=== PATIENT | female | born 1950 | race Caucasian/White ===

== ENCOUNTER 2017-01-16 13:14 | Observation (INO) | payer OTHER ==
[2017-01-16] MEDS ORDERED: CATAPRES TAB 0.1 MG PO PRN (16:51)
[2017-01-16] MEDS ORDERED: APRESOLINE INJ 20 MG VIAL IVP PRN (16:51)
[2017-01-16] MEDS ORDERED: TYLENOL 325 MG TAB PO PRN (17:13)
[2017-01-16 17:26] LABS: BASOPHILS # (AUTO) 0.1 X10^3/uL (0.0-0.1); EOSINOPHILS # (AUTO) 0.1 x10^3/uL (0.0-0.2); EOSINOPHILS % (AUTO) 0.6 % (0.9-2.9); HEMATOCRIT 42.4 % (36.0-47.0); HEMOGLOBIN 14.6 g/dL (12.0-16.0); LYMPHOCYTES # (AUTO) 2.7 X10^3/uL (1.3-2.9); LYMPHOCYTES % (AUTO) 22.1 % (21.0-51.0); MEAN CORPUSCULAR HEMOGLOBIN 31.5 pg (27.0-34.0); MEAN CORPUSCULAR HGB CONC 34.4 g/dL (33.0-35.0); MEAN CORPUSCULAR VOLUME 91.6 fL (80.0-100.0); MEAN PLATELET VOLUME 8.9 fL (7.4-11.0); MONOCYTES # (AUTO) 0.6 x10^3/uL (0.3-0.8); MONOCYTES % (AUTO) 4.6 % (0.0-13.0); NEUTROPHILS # (AUTO) 8.8 x10^3/uL (2.2-4.8); NEUTROPHILS % (AUTO) 71.7 % (42.0-75.0); PLATELET COUNT 233 X10^3/uL (150.0-450.0); RED BLOOD COUNT 4.63 X10^6/uL (3.5-5.4); RED CELL DISTRIBUTION WIDTH 13.2 % (11.6-16.5)
[2017-01-16] MEDS: NS 1000 ML 1,000 ML IV SCH (17:35)
[2017-01-16] MEDS: ZESTRIL TAB 40 MG PO SCH (17:35)
[2017-01-16] MEDS: NORVASC TAB 10 MG PO SCH (17:35)
[2017-01-16 17:43] LABS: ALKALINE PHOSPHATASE 84 Units/L (46-116); BLOOD UREA NITROGEN 11 mg/dL (7-18); TOTAL PROTEIN 7.9 g/dL (6.4-8.2); TROPONIN I < 0.02 ng/mL (0-1.5); eGFR BLACK RACES > 60 (>60); eGFR NON BLACK RACES > 60 (>60)
[2017-01-16 17:54] LABS: WHITE BLOOD COUNT 12.2 X10^3/uL (3.6-10.0)
[2017-01-16 17:55] LABS: PLATELET MORPHOLOGY COMMENT NORMAL (NORMAL)
[2017-01-16 18:03] LABS: ALANINE AMINOTRANSFERASE 31 Units/L (12-78); ALBUMIN 3.7 g/dL (3.4-5.0); ASPARTATE AMINO TRANSFERASE 24 Units/L (15-37); CALCIUM 9.2 mg/dL (8.5-10.1); CARBON DIOXIDE 20.8 mmol/L (21-32); CKMB % 1.4 % (<4); CREATINE KINASE 73 Units/L (26-192); CREATININE 0.83 mg/dL (0.55-1.02); GLUCOSE 111 mg/dL (65-99)
[2017-01-16 18:12] LABS: CHLORIDE 103 mmol/L (98-107); COR NA(FOR HYPERGLY) 139 mmol/L (136-145); SODIUM 139 mmol/L (136-145)
[2017-01-16 19:27] LABS: BILIRUBIN,URINE NEGATIVE (NEGATIVE); BLOOD/HEMOGLOBIN,URINE 2+ (NEGATIVE); GLUCOSE, URINE NEGATIVE (NEGATIVE); KETONES,URINE NEGATIVE (NEGATIVE); LEUKOCYTE ESTERASE ,URINE 1+ (NEGATIVE); NITRITES,URINE NEGATIVE (NEGATIVE); PROTEIN,URINE 1+ (NEGATIVE); UROBILINOGEN,URINE NORMAL (NORMAL)
[2017-01-16 19:34] LABS: AMORPHOUS SEDIMENT,UR TRACE /HPF (NEGATIVE); APPEARANCE,URINE CLOUDY (CLEAR); BACTERIA,URINE 2+ /HPF (NEGATIVE); COLOR,URINE YELLOW (YELLOW); SQUAMOUS EPITHELIAL CELL,UR MODERATE /HPF (NEGATIVE)
[2017-01-16] MEDS: NORCO 7.5/325 MG TAB PO PRN (20:48)
[2017-01-16] MEDS: CATAPRES TAB 0.2 MG PO SCH (20:49)
[2017-01-16] MEDS ORDERED: LOPRESSOR TAB 50 MG PO SCH (21:00)
--- NOTE | 2017-01-16 23:45 | RAD ---
Chest, two views Indication: Shortness of breath. Comparison: 09/20/2014 Findings: The cardiac silhouette is unremarkable. The lungs are mildly hypoinflated, but essentially clear, without focal infiltrates or pleural effusion. The bony thorax is unremarkable. Impression: No acute cardiopulmonary disease. Reported By:
--- NOTE | 2017-01-16 23:55 | CT ---
CT head without contrast Indication: Intractable headache, blurred vision, dizziness Comparison: 09/20/2014 Technique: CT images of the head were obtained without contrast. Automatic exposure control was util ized. Findings: There is periventricular and deep white matter hypoattenuation suggestive for chronic micr oangiopathy, similar to prior. Additionally, there are more focal hypodensities of the bilateral bas al ganglia, suggesting chronic lacunar infarcts. There is age appropriate generalized atrophy with c oncomitant ventricular and sulcal enlargement. There is no acute bleed, mass effect, or abnormal ext ra-axial collection. No significant skeletal abnormality. The visualized paranasal sinuses and masto id air cells are clear. Impression: No acute intracranial abnormality. Chronic findings as above. Reported By:
[2017-01-17 00:13] LABS: CKMB % 1.2 % (<4); CREATINE KINASE 81 Units/L (26-192); CREATINE KINASE MB < 1.0 ng/mL (0-4.0); TROPONIN I < 0.02 ng/mL (0-1.5)
[2017-01-17] MEDS: NORCO 7.5/325 MG TAB PO PRN ×3 (05:30→23:20)
[2017-01-17 05:48] LABS: BASOPHILS # (AUTO) 0.1 X10^3/uL (0.0-0.1); EOSINOPHILS # (AUTO) 0.2 x10^3/uL (0.0-0.2); EOSINOPHILS % (AUTO) 2.8 % (0.9-2.9); HEMATOCRIT 38.9 % (36.0-47.0); HEMOGLOBIN 13.4 g/dL (12.0-16.0); LYMPHOCYTES # (AUTO) 3.2 X10^3/uL (1.3-2.9); LYMPHOCYTES % (AUTO) 45.5 % (21.0-51.0); MEAN CORPUSCULAR HEMOGLOBIN 31.7 pg (27.0-34.0); MEAN CORPUSCULAR HGB CONC 34.3 g/dL (33.0-35.0); MEAN CORPUSCULAR VOLUME 92.3 fL (80.0-100.0); MEAN PLATELET VOLUME 8.3 fL (7.4-11.0); MONOCYTES # (AUTO) 0.4 x10^3/uL (0.3-0.8); MONOCYTES % (AUTO) 5.5 % (0.0-13.0); NEUTROPHILS # (AUTO) 3.2 x10^3/uL (2.2-4.8); NEUTROPHILS % (AUTO) 45.2 % (42.0-75.0); PLATELET COUNT 246 X10^3/uL (150.0-450.0); RED BLOOD COUNT 4.21 X10^6/uL (3.5-5.4); RED CELL DISTRIBUTION WIDTH 13.7 % (11.6-16.5)
[2017-01-17 05:59] LABS: ALKALINE PHOSPHATASE 73 Units/L (46-116); BLOOD UREA NITROGEN 15 mg/dL (7-18); CHLORIDE 105 mmol/L (98-107); eGFR BLACK RACES > 60 (>60); eGFR NON BLACK RACES > 60 (>60)
[2017-01-17 06:21] LABS: ALANINE AMINOTRANSFERASE 27 Units/L (12-78); ALBUMIN 3.1 g/dL (3.4-5.0); ASPARTATE AMINO TRANSFERASE 18 Units/L (15-37); CALCIUM 8.8 mg/dL (8.5-10.1); CARBON DIOXIDE 23.9 mmol/L (21-32); CKMB % 1.6 % (<4); COR CA(FOR HYPOALB) 9.5 mg/dL (8.5-10.1); COR NA(FOR HYPERGLY) 140 mmol/L (136-145); CREATINE KINASE 75 Units/L (26-192); CREATINE KINASE MB 1.2 ng/mL (0-4.0); CREATININE 0.87 mg/dL (0.55-1.02); GLUCOSE 130 mg/dL (65-99); SODIUM 139 mmol/L (136-145); TOTAL PROTEIN 6.8 g/dL (6.4-8.2); TROPONIN I < 0.02 ng/mL (0-1.5)
[2017-01-17] MEDS ORDERED: LOPRESSOR TAB 50 MG PO SCH (09:00)
[2017-01-17] MEDS ORDERED: TYLENOL #3 TAB (W/CODEINE) PO PRN (11:20)
[2017-01-17] MEDS ORDERED: CITALOPRAM HYDROBROMIDE PO SCH (11:30)
[2017-01-17 11:55] VITALS: BMI 32.3
[2017-01-17] MEDS ORDERED: ZESTRIL TAB 40 MG PO SCH (12:00)
[2017-01-17] MEDS: CATAPRES TAB 0.2 MG PO SCH (12:10)
[2017-01-17] MEDS: NORVASC TAB 10 MG PO SCH (12:11)
[2017-01-17] MEDS: ZESTRIL TAB 40 MG PO SCH (12:11)
[2017-01-17] MEDS: LOPRESSOR TAB 25 MG PO SCH ×2 (12:11→20:53)
[2017-01-17] MEDS: KLONOPIN TAB 1 MG PO SCH ×3 (12:18→22:50)
[2017-01-17] MEDS: PRAVACHOL PO SCH (12:19)
[2017-01-17] MEDS: ELAVIL PO SCH ×2 (12:19→20:53)
[2017-01-17] MEDS: PROTONIX TAB 40 MG PO SCH (12:19)
[2017-01-17] MEDS: CELEXA PO SCH (12:20)
--- NOTE | 2017-01-17 14:04 | DR.H&P ---
H&P - History & Physical for Day of: H&P Date: 01/16/17 - Chief Complaint Chief Complaint: elevated blood pressure and intractable migraine - Allergies Allergies/Adverse Reactions: Allergies Allergy/AdvReac Type Severity Reaction Status Date / Time NSAIDs Allergy Verified 04/03/15 21:54 - History of Present Illness History of Present Illness: patient is a 66-year-old white female who was a direct admit from Dr. Allen's office with hypertensive urgency, and intractable headache. Patient has a past medical history of uncontrolled uncontrolled high blood pressure, history of noncompliance. Patient has a history of severe lumbar degenerative disc disease status post surgery. Plan to admit for treatment of hypertensive crisis, CT of the head, serial cardiac enzymes and chest x-ray. We'll repeat a.m. labs and continue cardiac and blood pressure monitoring - Past Medical History Past Medical History: Arthritis, GERD, Hypertension - Past Surgical History Surgical History: Hysterectomy, Ortho Surgery, Tonsillectomy, Other - Family History Family Medical History: Diabetes Mellitus, [place], Coronary Artery Disease, Hypertension - Social History Does patient currently use any type of tobacco product: No Type of Tobacco Use: None Does any household member use tobacco: No Alcohol Use: None Drug Use: Prescription Drugs - Medications Home Medications: Qimsetmswj-Tilv-Bayrzakt [FIORICET 50/325/40 MG *] 1 tab PO DAILY PRN MDD headache 01/17/17 [History Confirmed 01/17/17] Citalopram Hydrobromide [Citalopram Hydrobromide] 1 tab PO DAILY 01/17/17 [ History Confirmed 01/17/17] Clonazepam [Clonazepam] 0.5 tab PO 1200 01/17/17 [History Confirmed 01/17/17] Clonazepam [Clonazepam] 0.5 tab PO DAILY 01/17/17 [History Confirmed 01/17/17] Clonazepam [Clonazepam] 1 tab PO HS 01/17/17 [History Confirmed 01/17/17] Duloxetine HCl [Duloxetine HCl] 1 cap PO DAILY 01/17/17 [History Confirmed 01/17] Levothyroxine Sodium [Levothyroxine Sodium] 1 tab PO DAILY 01/17/17 [History Confirmed 01/17/17] Lisinopril [Lisinopril] 1 tab PO DAILY 01/17/17 [History Confirmed 01/17/17] Pravastatin Sodium [Pravastatin Sodium] 1 tab PO DAILY 01/17/17 [History Confirmed 01/17/17] Simvastatin [Simvastatin] 1 tab PO DAILY 01/17/17 [History Confirmed 01/17/17] - Review of Systems Constitutional: Weakness Eyes: No Symptoms Reported ENT: No Symptoms Reported Respiratory: No Symptoms Reported Cardiovascular: Edema, Light Headedness Gastrointestinal: No Symptoms Reported Genitourinary: No Symptoms Reported Musculoskeletal: Back Pain Skin: No Symptoms Reported Neurological: Other (martinez, dizziness) - Physical Exam Vital Signs: Temperature 97.9 F Pulse Rate [Right Brachial] 65 Respiratory Rate 20 Blood Pressure [Right Arm] 92/51 Blood Pressure [Left Arm] 99/62 Blood Pressure 152/103 O2 Sat by Pulse Oximetry 94 Oriented: Normal Eyes: Normal Ear: Normal Nose: Normal Throat: Normal Respiratory: Clear Throughout Cardiovascular: Normal : Normal Auscultation: Bowel Sounds: Normal Palpation: Normal Tenderness: Normal Skin: Normal Musculoskeletal: Back:Thoracic, Back:Lumbar, Tender (c spine), Sensory Deficit ( left hand paresthesias) Affect: Anxious Speech Pattern: Clear, Appropriate - Assessment/Plan (1) Hypertensive urgency Status: Acute Plan: admit, CT HEAD, CXR. SERIAL CE, EKG, ADMISSION LABS CBC CMP UA. BP CONTROL WITH IV HYDRALAZINE AND CATAPRES. RESUME HOME MEDS. REPEAT AM LABS (2) Intractable headache Qualifiers: Headache type: H Headache chronicity pattern: H Status: Acute (3) Lumbar degenerative disc disease Status: Acute (4) Numbness of left hand Status: Acute
--- NOTE | 2017-01-17 14:08 | PCM.PROG ---
Progress Note - Progress Note for Day of Date: 01/17/17 - Subjective Subjective: patient is a 66-year-old white female who was admitted one day ago with hypertensive urgency. Patient was treated with IV hydralazine as well as by mouth Catapres. Patient's blood pressure much improved this a.m. however patient continues with slight headache and numbness and tingling to the left hand. The head was without acute findings, cardiac enzymes were stable. Plan to obtain an MRI of the C-spine to rule out canal stenosis, nerve impingement. Plan to obtain CTA of the renal arteries to rule out renal artery stenosis. - Past Medical Family Social History Past Med/Fam/Surg Hx: No changes since H&P Allergies: Allergies NSAIDs Allergy (Verified 04/03/15 21:54) - Review of Systems ROS: No change since H&P - Vital Signs and I&O's Vital Signs: Temperature 97.9 F Pulse Rate [Right Brachial] 65 Respiratory Rate 20 Blood Pressure [Right Arm] 92/51 Blood Pressure [Left Arm] 99/62 Blood Pressure 152/103 O2 Sat by Pulse Oximetry 94 Intake and Output: Intake & Output 01/15/17 01/16/17 01/17/17 01/18/17 11:59 11:59 11:59 11:59 Intake Total 610 Balance 610 - Physical Exam Oriented: Normal Eyes: Normal Ear: Normal Nose: Normal Throat: Normal Cardiovascular: Normal : Normal Auscultation: Bowel Sounds: Normal Tenderness: Normal Skin: Normal Musculoskeletal: Back:Thoracic, Back:Lumbar, Tender (c spine), Sensory Deficit ( left hand paresthesias) Affect: Anxious Speech Pattern: Clear, Appropriate - Laboratory and Diagnostics Result Diagrams: 01/17/17 05:13 01/17/17 05:13 Labs: 01/16/17 19:19 Urine,Clean Catch Urine Culture - Preliminary Laboratory WBC 7.0 X10^3/uL (3.6-10.0) 01/17/17 05:13 RBC 4.21 X10^6/uL (3.5-5.4) 01/17/17 05:13 Hgb 13.4 g/dL (12.0-16.0) 01/17/17 05:13 Hct 38.9 % (36.0-47.0) 01/17/17 05:13 MCV 92.3 fL (80.0-100.0) 01/17/17 05:13 MCH 31.7 pg (27.0-34.0) 01/17/17 05:13 MCHC 34.3 g/dL (33.0-35.0) 01/17/17 05:13 RDW 13.7 % (11.6-16.5) 01/17/17 05:13 Plt Count 246 X10^3/uL (150.0-450.0) 01/17/17 05:13 Plt Count Comment Adequate (ADEQUATE) 01/16/17 17:18 MPV 8.3 fL (7.4-11.0) 01/17/17 05:13 Neut % 45.2 % (42.0-75.0) 01/17/17 05:13 Lymph % 45.5 % (21.0-51.0) 01/17/17 05:13 [place] % 5.5 % (0.0-13.0) 01/17/17 05:13 Eos % 2.8 % (0.9-2.9) 01/17/17 05:13 Baso % 1.0 % (0.2-1.0) 01/17/17 05:13 Neut # 3.2 x10^3/uL (2.2-4.8) 01/17/17 05:13 Lymph # 3.2 X10^3/uL (1.3-2.9) H 01/17/17 05:13 [place] # 0.4 x10^3/uL (0.3-0.8) 01/17/17 05:13 Eos # 0.2 x10^3/uL (0.0-0.2) 01/17/17 05:13 Baso # 0.1 X10^3/uL (0.0-0.1) 01/17/17 05:13 Absolute Nucleated RBC 0.1 /100WBC 01/17/17 05:13 Plt Clumps, EDTA Rare 01/16/17 17:18 Plt Morphology Comment Normal (NORMAL) 01/16/17 17:18 RBC Morphology Normal (NORMAL) 01/16/17 17:18 Sodium 139 mmol/L (136-145) 01/17/17 05:13 Corrected Sodium 140 mmol/L (136-145) 01/17/17 05:13 Potassium 3.4 mmol/L (3.5-5.1) L 01/17/17 05:13 Chloride 105 mmol/L (98-107) 01/17/17 05:13 Carbon Dioxide 23.9 mmol/L (21-32) 01/17/17 05:13 BUN 15 mg/dL (7-18) 01/17/17 05:13 Creatinine 0.87 mg/dL (0.55-1.02) 01/17/17 05:13 Est GFR (MDRD) Af Amer > 60 (>60) 01/17/17 05:13 Est GFR (MDRD) Non-Af > 60 (>60) 01/17/17 05:13 Glucose 130 mg/dL (65-99) H 01/17/17 05:13 Calcium 8.8 mg/dL (8.5-10.1) 01/17/17 05:13 Corrected Calcium 9.5 mg/dL (8.5-10.1) 01/17/17 05:13 Total Bilirubin 0.30 mg/dL (0.2-1.0) 01/17/17 05:13 AST 18 Units/L (15-37) 01/17/17 05:13 ALT 27 Units/L (12-78) 01/17/17 05:13 Alkaline Phosphatase 73 Units/L (46-116) 01/17/17 05:13 Creatine Kinase 75 Units/L (26-192) 01/17/17 05:13 CK-MB (CK-2) 1.2 ng/mL (0-4.0) 01/17/17 05:13 CK/CKMB % Calc 1.6 % (<4) 01/17/17 05:13 Troponin I < 0.02 ng/mL (0-1.5) 01/17/17 05:13 Total Protein 6.8 g/dL (6.4-8.2) 01/17/17 05:13 Albumin 3.1 g/dL (3.4-5.0) L 01/17/17 05:13 Globulin 3.7 g/dL (2.5-4.5) 01/17/17 05:13 Albumin/Globulin Ratio 0.8 Ratio (1.1-2.1) L 01/17/17 05:13 Specimen Type Clean catch urine 01/16/17 19:19 Urine Color Yellow (YELLOW) 01/16/17 19:19 Urine Appearance Cloudy (CLEAR) 01/16/17 19:19 Urine pH 5.0 (5.0 - 8.0) 01/16/17 19:19 Ur Specific [place] 1.020 (1.000-1.030) 01/16/17 19:19 Urine Protein 1+ (NEGATIVE) 01/16/17 19:19 Urine Glucose (UA) Negative (NEGATIVE) 01/16/17 19:19 Urine Ketones Negative (NEGATIVE) 01/16/17 19:19 Urine Occult Blood 2+ (NEGATIVE) 01/16/17 19:19 Urine Nitrite Negative (NEGATIVE) 01/16/17 19: Urine Bilirubin Negative (NEGATIVE) 01/16/17 19:19 Urine Urobilinogen Normal (NORMAL) 01/16/17 19:19 Ur Leukocyte Esterase 1+ (NEGATIVE) 01/16/17 19:19 Urine RBC 7-8 /HPF (NEGATIVE) 01/16/17 19:19 Urine WBC 3-5 /HPF (NEGATIVE) 01/16/17 19:19 Ur Squamous Epith Cells Moderate /HPF (NEGATIVE) 01/16/17 19:19 Amorphous Sediment Trace /HPF (NEGATIVE) 01/16/17 19:19 Urine Bacteria 2+ /HPF (NEGATIVE) 01/16/17 19:19 Ur Culture Indicated? Yes/culture set up 01/16/17 19:19 Urine Opiates Screen Negative (NEG=<300) 01/16/17 19:19 Urine Methadone Screen Negative (NEG=<300) 01/16/17 19:19 Ur Barbiturates Screen Negative (NEG=<200) 01/16/17 19:19 Ur Phencyclidine Scrn Negative (NEG=<25) 01/16/17 19:19 Ur Amphetamines Screen Negative (NEG=<1000) 01/16/17 19:19 U Benzodiazepines Scrn Negative (NEG=<200) 01/16/17 19:19 Urine Cocaine Screen Negative (NEG=<300) 01/16/17 19:19 U Marijuana (THC) Screen Negative (NEG=<50) 01/16/17 19:19 - Plan (1) Hypertensive urgency Status: Acute Plan: blood pressure improved this morning after IV hydralazine and by mouth Catapres. Will continue patient's home meds, continue cardiac monitoring, continue blood pressure control. We'll obtain CTA of the renal arteries to rule out renal artery stenosis as a cause for malignant hypertension (2) Intractable headache Status: Acute Qualifiers: Headache type: H Headache chronicity pattern: H Plan: pain control (3) Lumbar degenerative disc disease Status: Acute (4) Numbness of left hand Status: Acute Plan: continue blood pressure control, supportive care, MRI of the C-spine to rule out canal stenosis, nerve impingement (5) UTI (urinary tract infection) Status: Acute Qualifiers: Urinary tract infection type: U Hematuria presence: H Indwelling urinary catheter type: I Encounter type: E Plan: Rocephin 1 g IV daily
[2017-01-17] MEDS: ROCEPHIN VIAL 1 GM 1 GM in NS 50 ML IV + SPIKE MINIBAG* 50 ML IV SCH (15:08)
[2017-01-17] MEDS ORDERED: NS 100 ML IV 100 ML IV ONE (15:21)
--- NOTE | 2017-01-17 17:16 | CT ---
HISTORY: Hypertension, evaluate for renal artery stenosis Study: CT angiography of the abdomen Comparison: None Technique: Multiple axial images of the abdomen were obtained prior to and after the administration of IV contr ast. 3D reconstructions were performed utilizing radial maximum intensity projection imaging. Dose reduction techniques including Automated Exposure Control (AEC) and adjustment of mA and kV were uti lized. Findings: Mild cardiomegaly is noted. The lung bases are clear. There is diffuse hepatic steatosis. The solid organs are otherwise unremarkable. There is a simple appearing right renal cyst and nonobstructing r ight lower pole renal calculus. Normal gallbladder. No evidence of intestinal obstruction or infla mmation. No free fluid or free air. there are postsurgical changes of the lumbosacral spine noted. There is anterolisthesis of L4 on L5. Previous laminectomy is also noted at that level. Abdominal aorta: Normal in caliber. Mild atherosclerotic plaque is present. No aneurysm or dissectio n. Celiac trunk: Normal. Superior mesenteric artery: Normal. Renal Arteries: Single bilateral renal arteries with no significant stenosis identified. There is mi nimal nodular calcified plaque at the origin of the left renal artery. Inferior mesenteric artery: Normal. Iliac arteries: Normal. IMPRESSION: 1. Mild atherosclerotic disease, otherwise unremarkable CTA. No renal artery stenosis. 2. Hepatic steatosis. Reported By:
[2017-01-17] MEDS ORDERED: AMITRIPTYLINE HCL 50 MG PO SCH (21:00)
[2017-01-17] MEDS: NS 1000 ML 1,000 ML IV SCH (22:49)
[2017-01-18] MEDS: CATAPRES TAB 0.2 MG PO SCH ×2 (00:27→08:34)
[2017-01-18 05:02] LABS: ALANINE AMINOTRANSFERASE 28 Units/L (12-78); ALBUMIN 3.1 g/dL (3.4-5.0); ALKALINE PHOSPHATASE 70 Units/L (46-116); ASPARTATE AMINO TRANSFERASE 21 Units/L (15-37); BLOOD UREA NITROGEN 14 mg/dL (7-18); CALCIUM 8.7 mg/dL (8.5-10.1); CARBON DIOXIDE 23.6 mmol/L (21-32); CHLORIDE 108 mmol/L (98-107); COR CA(FOR HYPOALB) 9.4 mg/dL (8.5-10.1); CREATININE 0.75 mg/dL (0.55-1.02); GLUCOSE 91 mg/dL (65-99); SODIUM 141 mmol/L (136-145); TOTAL PROTEIN 6.7 g/dL (6.4-8.2); eGFR BLACK RACES > 60 (>60); eGFR NON BLACK RACES > 60 (>60)
[2017-01-18 05:15] LABS: BASOPHILS % (AUTO) 0.9 % (0.2-1.0); EOSINOPHILS # (AUTO) 0.1 x10^3/uL (0.0-0.2); EOSINOPHILS % (AUTO) 2.7 % (0.9-2.9); HEMATOCRIT 39.8 % (36.0-47.0); HEMOGLOBIN 13.5 g/dL (12.0-16.0); LYMPHOCYTES # (AUTO) 2.6 X10^3/uL (1.3-2.9); LYMPHOCYTES % (AUTO) 50.2 % (21.0-51.0); MEAN CORPUSCULAR HGB CONC 33.9 g/dL (33.0-35.0); MEAN CORPUSCULAR VOLUME 94.4 fL (80.0-100.0); MEAN PLATELET VOLUME 9.2 fL (7.4-11.0); MONOCYTES # (AUTO) 0.3 x10^3/uL (0.3-0.8); MONOCYTES % (AUTO) 5.4 % (0.0-13.0); NEUTROPHILS # (AUTO) 2.1 x10^3/uL (2.2-4.8); NEUTROPHILS % (AUTO) 40.8 % (42.0-75.0); PLATELET COUNT 219 X10^3/uL (150.0-450.0); RED BLOOD COUNT 4.22 X10^6/uL (3.5-5.4); RED CELL DISTRIBUTION WIDTH 13.6 % (11.6-16.5); WHITE BLOOD COUNT 5.3 X10^3/uL (3.6-10.0)
[2017-01-18] MEDS: KLONOPIN TAB 1 MG PO SCH (05:52)
[2017-01-18] MEDS: NORCO 7.5/325 MG TAB PO PRN (07:18)
[2017-01-18] MEDS: ELAVIL PO SCH (08:34)
[2017-01-18] MEDS: CELEXA PO SCH (08:34)
[2017-01-18] MEDS: LOPRESSOR TAB 25 MG PO SCH (08:34)
[2017-01-18] MEDS: PROTONIX TAB 40 MG PO SCH (08:35)
[2017-01-18] MEDS: PRAVACHOL PO SCH (08:35)
[2017-01-18] MEDS: ZESTRIL TAB 40 MG PO SCH (08:35)
[2017-01-18] MEDS: NORVASC TAB 10 MG PO SCH (08:35)
[2017-01-18] MEDS: ROCEPHIN VIAL 1 GM 1 GM in NS 50 ML IV + SPIKE MINIBAG* 50 ML IV SCH (08:35)
[2017-01-18] MEDS ORDERED: PATIENT'S HOME MEDICATION (Tizanidine Hcl [Zanaflex 4 Mg] 4 MG) PO PRN (08:52)
[2017-01-18] MEDS ORDERED: TYLENOL #3 TAB (W/CODEINE) PO PRN (08:52)
[2017-01-18] MEDS ORDERED: ZANAFLEX PO PRN ×2 (08:59→09:00)
[2017-01-18] MEDS ORDERED: PATIENT'S HOME MEDICATION (Pravastatin Sodium [Pravastatin Sodium] 1 TAB) PO SCH (09:00)
[2017-01-18] MEDS ORDERED: CYMBALTA PO SCH (09:00)
[2017-01-18] MEDS ORDERED: ESTRACE PO SCH (09:00)
[2017-01-18] MEDS ORDERED: SYNTHROID 50 mcg TAB PO SCH (09:00)
[2017-01-18] MEDS ORDERED: KLONOPIN TAB 1 MG PO SCH ×2 (12:00→21:00)
[2017-01-18 13:28] VITALS: BP 134/67
--- NOTE | 2017-01-18 13:59 | PCM.DCPLAN ---
Discharge Summary - Admission Date Date of Admission: 01/16/17 - Discharge Date Discharge Date: 01/18/17 - Admission Diagnoses (1) Hypertensive urgency Status: Acute (2) Intractable headache Status: Acute (3) Lumbar degenerative disc disease Status: Acute (4) Numbness of left hand Status: Acute (5) UTI (urinary tract infection) Status: Acute - Discharge Diagnoses Discharge Diagnosis: same as admission - Discharge Medications Discharge Medications: Pejidhystd-Uajo-Ctjigvah [FIORICET 50/325/40 MG *] 1 tab PO DAILY PRN MDD headache 01/17/17 [History] Citalopram Hydrobromide 1 tab PO DAILY 01/17/17 [History] Clonazepam 0.5 tab PO 1200 01/17/17 [History] Clonazepam 0.5 tab PO DAILY 01/17/17 [History] Clonazepam 1 tab PO HS 01/17/17 [History] Duloxetine HCl 1 cap PO DAILY 01/17/17 [History] Levothyroxine Sodium 1 tab PO DAILY 01/17/17 [History] Lisinopril 1 tab PO DAILY 01/17/17 [History] Pravastatin Sodium 1 tab PO DAILY 01/17/17 [History] Simvastatin 1 tab PO DAILY 01/17/17 [History] - Hospital Course Vital Signs: Temperature 97.8 F Pulse Rate [Right Brachial] 86 Respiratory Rate 20 Blood Pressure [Right Arm] 134/67 Blood Pressure [Left Arm] 132/91 Blood Pressure 152/103 O2 Sat by Pulse Oximetry 98 Latest Lab Results: Laboratory Last Values WBC 5.3 X10^3/uL (3.6-10.0) 01/18/17 03:00 RBC 4.22 X10^6/uL (3.5-5.4) 01/18/17 03:00 Hgb 13.5 g/dL (12.0-16.0) 01/18/17 03:00 Hct 39.8 % (36.0-47.0) 01/18/17 03:00 MCV 94.4 fL (80.0-100.0) 01/18/17 03:00 MCH 32.0 pg (27.0-34.0) 01/18/17 03:00 MCHC 33.9 g/dL (33.0-35.0) 01/18/17 03:00 RDW 13.6 % (11.6-16.5) 01/18/17 03:00 Plt Count 219 X10^3/uL (150.0-450.0) 01/18/17 03:00 Plt Count Comment Adequate (ADEQUATE) 01/16/17 17:18 MPV 9.2 fL (7.4-11.0) 01/18/17 03:00 Neut % 40.8 % (42.0-75.0) L 01/18/17 03:00 Lymph % 50.2 % (21.0-51.0) 01/18/17 03:00 [place] % 5.4 % (0.0-13.0) 01/18/17 03:00 Eos % 2.7 % (0.9-2.9) 01/18/17 03:00 Baso % 0.9 % (0.2-1.0) 01/18/17 03:00 Neut # 2.1 x10^3/uL (2.2-4.8) L 01/18/17 03:00 Lymph # 2.6 X10^3/uL (1.3-2.9) 01/18/17 03:00 [place] # 0.3 x10^3/uL (0.3-0.8) 01/18/17 03:00 Eos # 0.1 x10^3/uL (0.0-0.2) 01/18/17 03:00 Baso # 0.0 X10^3/uL (0.0-0.1) 01/18/17 03:00 Absolute Nucleated RBC 0.1 /100WBC 01/18/17 03:00 Plt Clumps, EDTA Rare 01/16/17 17:18 Plt Morphology Comment Normal (NORMAL) 01/16/17 17:18 RBC Morphology Normal (NORMAL) 01/16/17 17:18 Sodium 141 mmol/L (136-145) 01/18/17 03:00 Corrected Sodium TNP 01/18/17 03:00 Potassium 4.1 mmol/L (3.5-5.1) 01/18/17 03:00 Chloride 108 mmol/L (98-107) H 01/18/17 03:00 Carbon Dioxide 23.6 mmol/L (21-32) 01/18/17 03:00 BUN 14 mg/dL (7-18) 01/18/17 03:00 Creatinine 0.75 mg/dL (0.55-1.02) 01/18/17 03:00 Est GFR (MDRD) Af Amer > 60 (>60) 01/18/17 03:00 Est GFR (MDRD) Non-Af > 60 (>60) 01/18/17 03:00 Glucose 91 mg/dL (65-99) 01/18/17 03:00 Calcium 8.7 mg/dL (8.5-10.1) 01/18/17 03:00 Corrected Calcium 9.4 mg/dL (8.5-10.1) 01/18/17 03:00 Total Bilirubin 0.20 mg/dL (0.2-1.0) 01/18/17 03:00 AST 21 Units/L (15-37) 01/18/17 03:00 ALT 28 Units/L (12-78) 01/18/17 03:00 Alkaline Phosphatase 70 Units/L (46-116) 01/18/17 03:00 Creatine Kinase 75 Units/L (26-192) 01/17/17 05:13 CK-MB (CK-2) 1.2 ng/mL (0-4.0) 01/17/17 05:13 CK/CKMB % Calc 1.6 % (<4) 01/17/17 05:13 Troponin I < 0.02 ng/mL (0-1.5) 01/17/17 05:13 Total Protein 6.7 g/dL (6.4-8.2) 01/18/17 03:00 Albumin 3.1 g/dL (3.4-5.0) L 01/18/17 03:00 Globulin 3.6 g/dL (2.5-4.5) 01/18/17 03:00 Albumin/Globulin Ratio 0.9 Ratio (1.1-2.1) L 01/18/17 03:00 Specimen Type Clean catch urine 01/16/17 19:19 Urine Color Yellow (YELLOW) 01/16/17 19:19 Urine Appearance Cloudy (CLEAR) 01/16/17 19:19 Urine pH 5.0 (5.0 - 8.0) 01/16/17 19:19 Ur Specific [place] 1.020 (1.000-1.030) 01/16/17 19:19 Urine Protein 1+ (NEGATIVE) 01/16/17 19:19 Urine Glucose (UA) Negative (NEGATIVE) 01/16/17 19:19 Urine Ketones Negative (NEGATIVE) 01/16/17 19:19 Urine Occult Blood 2+ (NEGATIVE) 01/16/17 19:19 Urine Nitrite Negative (NEGATIVE) 01/16/17 19:19 Urine Bilirubin Negative (NEGATIVE) 01/16/17 19:19 Urine Urobilinogen Normal (NORMAL) 01/16/17 19:19 Ur Leukocyte Esterase 1+ (NEGATIVE) 01/16/17 19:19 Urine RBC 7-8 /HPF (NEGATIVE) 01/16/17 19:19 Urine WBC 3-5 /HPF (NEGATIVE) 01/16/17 19:19 Ur Squamous Epith Cells Moderate /HPF (NEGATIVE) 01/16/17 19: Amorphous Sediment Trace /HPF (NEGATIVE) 01/16/17 19:19 Urine Bacteria 2+ /HPF (NEGATIVE) 01/16/17 19:19 Ur Culture Indicated? Yes/culture set up 01/16/17 19:19 Urine Opiates Screen Negative (NEG=<300) 01/16/17 19:19 Urine Methadone Screen Negative (NEG=<300) 01/16/17 19:19 Ur Barbiturates Screen Negative (NEG=<200) 01/16/17 19:19 Ur Phencyclidine Scrn Negative (NEG=<25) 01/16/17 19:19 Ur Amphetamines Screen Negative (NEG=<1000) 01/16/17 19:19 U Benzodiazepines Scrn Negative (NEG=<200) 01/16/17 19:19 Urine Cocaine Screen Negative (NEG=<300) 01/16/17 19:19 U Marijuana (THC) Screen Negative (NEG=<50) 01/16/17 19:19 Hospital Course: Patient is a 66-year-old white female who was a direct admit from Dr. Allen' s office with complaints of hypertensive urgency. Patient has a history of high blood pressure as well as noncompliance. Patient was admitted for treatment of hypertension with IV hydralazine and by mouth Catapres in addition to patient's home medication. Patient had serial cardiac enzymes which were stable. Patient also had complaints of a severe headache. Patient has a history of headaches. Patient had a CT of her head on admission which was without acute findings. Also chest x-ray within normal limits. On day 2 the patient's blood pressure was significantly improved however patient continued with complaints of intermittent left hand paresthesias. Patient does have a chronic history of degenerative disc disease. MRI of the C-spine was ordered but not approved for insurance plan to set up an outpatient basis. Patient also had a CTA to rule out renal artery stenosis which was negative for renal artery stenosis findings. Patient labs remained within normal limits this morning. Patient feels much improved. Patient complaining of intermittent paresthesias. Informed of need for outpatient MRI. Patient blood pressure controlled. Patient to be discharged home to resume home medication. Patient to follow-up with Dr. Allen in one week with a blood pressure diary. Patient also instructed she needs to have a sleep study outpatient as well as a cardiac workup including echocardiogram and a stress test. Patient's condition on discharge was improved and stable. - Discharge Plan Disposition: 01 HOME, SELF-CARE Condition: Stable - Follow ups/Referrals Follow ups/Referrals: IRWIN ALLEN [Primary Care Provider] - 01/25/17 1:45 pm - Instructions Instructions: Urinary Tract Infection, [id number], Form - Blood Pressure Record Sheet, Hypertension, [id number], Managing Your High Blood Pressure, Migraine Headache Additional Instructions: resume home meds needs sleep study opt needs stress test and echo opt will see Dr Allen in one week bring bp diary with pt to visit Forms: Patient Portal
[2017-01-18] MEDS ORDERED: ZOCOR TAB 20 MG PO SCH (21:00)
[2017-01-18] MEDS ORDERED: PRAVACHOL PO SCH (21:00)
== END 2017-01-18 12:55 | disposition home or self-care (01) ==
LOC: MED/SURG 13:14
PROVIDERS: ADMIT Internal Medicine; ATTEND Internal Medicine
DX: I16.0 Hypertensive urgency (principal); G43.819 Other migraine, intractable, without status migrainosus; R94.31 Abnormal electrocardiogram [ECG] [EKG]; K76.0 Fatty (change of) liver, not elsewhere classified; K21.9 Gastro-esophageal reflux disease without esophagitis; I25.10 Atherosclerotic heart disease of native coronary artery without angina pectoris; R20.0 Anesthesia of skin; M51.36 Other intervertebral disc degeneration, lumbar region; N39.0 Urinary tract infection, site not specified
CPT/HCPCS: 36415; 70450; 71020; 74174; 80053; 80307; 81001; 82550; 82553; 84484; 85025; 87086; 93005; 93010; 94760; A4222; G0378; G0434; J0696